=== PATIENT | female | born 1965 | race Caucasian/White ===

== ENCOUNTER 2016-11-30 04:42 | Emergency (ER) | payer BC | END 2016-11-30 04:52 | disposition home or self-care (01) | LOC: ER 04:42 | DX: J06.9 Acute upper respiratory infection, unspecified (principal); F17.200 Nicotine dependence, unspecified, uncomplicated; Z98.890 Other specified postprocedural states; Z88.2 Allergy status to sulfonamides; Z88.1 Allergy status to other antibiotic agents | CPT/HCPCS: 71020; 96372; 99284; A9270-GY ==